=== PATIENT | male | born 1990 | race American Indian/Alaskan Native ===

== ENCOUNTER 2016-08-31 17:18 | Emergency (ER) | payer SELFPAY ==
[2016-08-31 17:37] VITALS: BP 135/113
== END 2016-08-31 23:08 | disposition left against medical advice (07) ==
LOC: ED 17:18
DX: S89.92XA Unspecified injury of left lower leg, initial encounter (principal); X58.XXXA Exposure to other specified factors, initial encounter; Y93.61 Activity, american tackle football; Y99.9 Unspecified external cause status; Y92.89 Other specified places as the place of occurrence of the external cause; Z53.21 Procedure and treatment not carried out due to patient leaving prior to being seen by health care provider